=== PATIENT | male | born 1960 | race Caucasian/White ===

== ENCOUNTER → 2018-08-29 09:14 | Outpatient (CLI) | payer OTHER, SELFPAY ==
--- NOTE | 2018-08-29 09:16 | DI.RAD.S_ITS ---
PROCEDURE: XR CHEST 2V INDICATIONS: cough, crackles on exam, tachycardia TECHNIQUE: 2 views of the chest were acquired. COMPARISON: None. FINDINGS: Surgical changes and devices: None. Lungs and pleura: Lungs increased bronchovascular markings in bilateral hilar region is seen with mild bronchial wall thickening. No definite focal infiltrate. No pleural effusions or pneumothorax. Mediastinum: Mediastinal contours are normal. Heart size is normal. Bones and chest wall: No suspicious bony abnormalities. Soft tissues appear unremarkable. IMPRESSION: Suggestion of reactive airway disease such as bronchitis. No definite focal infiltrate. Dictated by: Cricket Ugalde M.D. on 08/29/2018 at 10:15 Approved by: Cricket Ugalde M.D. on 08/29/2018 at 10:16
== END ==
PROVIDERS: PCP Family Medicine; Visit Provider Family Medicine
DX: R05 Cough (principal); R00.0 Tachycardia, unspecified
CPT/HCPCS: 71046

== ENCOUNTER 2018-09-07 08:16 | Day surgery (SDC) | payer OTHER, SELFPAY ==
[2018-09-05 14:52] VITALS: BMI 28.8
--- NOTE | 2018-09-07 | PATH_ITS ---
[facility] Accession Number: [id number] . 01 Material submitted: . RIGHT NECK . 01 Clinical history: . SEBACEOUS CYST . 02 Diagnosis: Tissue From Right Side of Neck: Fragments of epidermal cyst, negative for atypia. MRV/09/08/2018 . 02 Electronically signed: . Sage Urena MD, Pathologist NPI- [id number] . 01 Gross description: . Received one formalin-filled container labeled with the patient's name and labeled right neck are multiple fragments of hennessy-cordon friable material, which aggregate to 2.0 x 1.5 x 0.5 cm. The specimen is inked blue. Two enrollment representative sections are submitted in one cassette. ([facility]:[id number]) /[facility] . 02 Pathologist provided ICD-10: L72.0 . 02 CPT . 216522 Performed at: 01 [facility] [address] [facility], [place], [place] [id number] MD Kalyan Corona MD Phone: [phone] Performed at: 02 [facility] [address] [place], [place] [id number] MD Jessica Loco MD Phone: [phone]
[2018-09-07 08:32] VITALS: BMI 29.5
[2018-09-07 08:36] VITALS: BP 133/84; PULSE 70; RESP 15; TEMP 36.6; O2SAT 98
[2018-09-07] MEDS: LACTATED RINGERS 1,000 ML 42 ML IV (08:37)
[2018-09-07] MEDS: CEFAZOLIN 2 GM/100 ML FROZ.PIGGY IV (08:55)
--- NOTE | 2018-09-07 08:56 | PM.HP.1 ---
History of Present Illness Date Patient Seen: 09/07/18 Time Patient Seen: 08:48 Chief complaint: [id number] Narrative: The patient is a gentleman with a growing occasionally tender sebaceous cyst right neck brought in for excision. Patient History Medical History Bursitis (Acute) Glaucoma (Acute) Hearing deficit (Acute) Reactive airway disease (Acute) Anxiety (Chronic) Surgical History Hx of right knee surgery (Acute ~1999) History of arthroscopy of right knee (Resolved) Family History Father Heart disease Social History marital status: household members: spouse occupational status: employed Smoking Status: Never smoker alcohol intake: current substance use type: does not use Family & Social History Family History Father Heart disease Social History: household members spouse Tobacco & Substance use: Smoking Status Never smoker alcohol intake current Substance Use Type marijuana Meds Home Medications Medication Instructions Recorded Confirmed Type azithromycin 250 mg tablet See Rx Instructions PO .COMPLEX #6 08/29/18 09/07/18 Rx tab paroxetine 40 mg tablet 40 mg PO QDAY #90 tab 08/29/18 09/07/18 Rx Allergies Allergy/AdvReac Type Severity Reaction Status Date / Time No Known Drug Allergies Allergy Verified 09/07/18 08:31 Review of Systems Review of Systems No cough cold or asthma at this time. He is just getting over a sinus drainage sore throat issue. He is about 5 days from having symptoms. He has no heart problems chest pain, black or bloody bowel movement, seizures or blackouts. Exam Vital Signs (past 8 hours): - 09/07/18 08:36 Temperature 98 F Pulse Rate 70 Respiratory Rate 15 Blood Pressure 133/84 Pulse Oximetry 98 Oxygen Delivery Method Room Air Narrative Exam Narrative: Patient in no apparent distress. His eyes are nonicteric. He has a 2 in x 1 in should sebaceous cyst right neck posterior lateral aspect. It is not inflamed at this time. His lungs are clear to auscultation. No rales or rhonchi. Heart regular rate and rhythm without murmur gallop. There are no nodes in the neck or supraclavicular areas. Patient is alert and oriented. Assessment & Plan Assessment & Plan narrative: Mass the right neck clinically a sebaceous cyst plan to remove it. I have discussed this with the patient. Risks of bleeding infection nerve injury all discussed. He appears to understand and wishes to proceed.
--- NOTE | 2018-09-07 09:02 | PM.PREOP ---
Pre-operative Note Interval Note History & Physical reviewed/Exam performed by Physician: Yes Changes to H&P: No
--- NOTE | 2018-09-07 09:29 | SUR.OPER ---
Supine on padded OR bed, head on pillow, arm padded and tucked at side, legs uncrossed, safety belt at thigh, tape over blanket over lower legs .
[2018-09-07] MEDS: BUPIVACAINE 0.5% (PF) VIAL 30 ML INJ (09:37)
[2018-09-07 09:51] VITALS: BP 162/77; PULSE 75; RESP 14; O2SAT 96
[2018-09-07 09:56] VITALS: BP 148/87; PULSE 75; RESP 10; TEMP 36.4; O2SAT 98
[2018-09-07 10:01] VITALS: BP 128/87; PULSE 72; RESP 14; O2SAT 95
--- NOTE | 2018-09-07 10:06 | SUR.PHASEI ---
easily arousable, site c/d/i.
--- NOTE | 2018-09-07 10:09 | PM.OP.1 ---
Operative Date/Time/Diagnoses Date of procedure: 09/07/18 Time of procedure: 08:49 Pre-op diagnosis: Sebaceous cyst right neck Post-op diagnosis: same Procedure & Clinicians Procedure: Excision 5 by 3 cm cyst. Same procedure as scheduled: Yes Indications: Enlarging cystic mass in the neck Surgeon: Abdias Sidhu Click Yes if Unassisted: Yes Anesthesia Type: General Operative Notes Findings: Typical sebaceous cyst. Was attached to platysma. Closure Type: primary Specimen(s): other (Collapsed cyst wall) Estimated Blood Loss (mL): 5 Blood products transfused: none Procedure in detail: The patient is placed supine on the operating room table underwent general LMA anesthesia. Neck was turned slightly to the left and he was prepped and draped in the usual fashion. Local anesthetic was infiltrated a field block fashion around the lesion. Incision was made in Romy's lines and carried down to the cyst which was immediately beneath the skin. It was dissected from surrounding structures and had to be dissected off the underlying platysma to which it was attached. The cyst wall collapsed with dissection as is fairly typical of these lesions. Once the wall was removed the wound was irrigated. Subcu was closed with interrupted 3 0 Vicryl. The skin was closed a running 4 0 Vicryl subcuticular stitch and Steri-Strips. Dressing was applied the patient was taken to recovery area in good condition. There are no apparent complications. Complications: none Condition: stable Disposition: PACU Plan for aftercare: Follow-up in office
[2018-09-07 10:11] VITALS: BP 135/81; PULSE 70; RESP 16; TEMP 36.3; O2SAT 96
[2018-09-07 10:19] VITALS: BP 120/77; PULSE 70; RESP 14; TEMP 36.6; O2SAT 95
--- NOTE | 2018-09-07 10:29 | SUR.PHASEII ---
Jen cdi. Call light within reach. Po intake offered and declined. Spouse at bedside.
== END 2018-09-07 10:42 | disposition home or self-care (01) ==
PROVIDERS: PCP Family Medicine; Visit Provider Specialist
PROC: (CPT 21552; principal; 2018-09-07 09:45)
DX: L72.0 Epidermal cyst (principal)
CPT/HCPCS: 21552; J0690; J1100; J2250; J2704; J3010